=== PATIENT | male | born 1960 | race Caucasian/White ===

== ENCOUNTER 2016-10-17 06:08 | Inpatient (IN) | payer BC ==
--- NOTE | 2016-10-09 08:58 | HP ---
HISTORY AND PHYSICAL: DATE OF ADMISSION: DATE OF PROCEDURE: 10/17/16. PROCEDURE: Left total knee replacement. CHIEF COMPLAINT: Left knee pain. HISTORY OF PRESENT ILLNESS: Mr. Goncalves is a very pleasant 56-year-old gentleman who presents for h istory and physical examination prior to undergoing a left total knee replacement. In brief, the carmen hernandez has severe end-stage osteoarthritis of his left knee and has failed conservative treatment suc h as steroid injections and antiinflammatories. He has elected to undergo a left total knee replace ment by Dr. Lindquist on 10/17/16. PAST MEDICAL HISTORY: 1. Hypertension. 2. GERD. 3. Osteoarthritis. 4. History of shoulder dislocation. PAST SURGICAL HISTORY: 1. Back surgery. 2. Bilateral knee surgery; left in 1985, right in 1973. 3. Neck surgery. 4. Carpal tunnel surgery. CURRENT MEDICATIONS: 1. Tramadol 100 mg. 2. Lisinopril 25 mg daily. 3. Aleve PM p.r.n. 4. Tylenol 325 mg p.r.n. 5. Celebrex 100 mg b.i.d. p.r.n. 6. AcipHex 20 mg one tablet daily. ALLERGIES: NO KNOWN DRUG ALLERGIES. FAMILY MEDICAL HISTORY: No family medical history of DVTs, PEs, or stroke. SOCIAL HISTORY: Positive alcohol use, approximately one drink per day, no history of tobacco use. Currently, living with his . REVIEW OF SYSTEMS: General: Denies fevers, chills, or lightheadedness. No difficulty with anesthe dorys. HEENT: Negative for headache, lightheadedness, or syncopal episodes. Integument: Negative f or abrasions, lesions, open wounds or sores. Does have difficulty of wound healing. Cardiothoracic : Negative for chest pain, palpitations, or edema. Positive for hypertension. Pulmonary: Negativ e for shortness of breath with exertion, chronic cough or COPD. GI: Negative for nausea, vomiting, constipation, or diarrhea. Positive for GERD. : Negative for nocturia, urinary frequency, urge ncy, history of UTIs, or kidney problems. Musculoskeletal: Positive for left knee pain. Positive f or chronic lower back pain. Neurologic: Positive for paresthesia of bilateral lower extremities. P ositive for numbness in bilateral lower extremities. No history of seizure, stroke or epilepsy. En docrine: Negative for diabetes or thyroid. Hematologic: Negative for easy bruising, anemia, or exc essive bleeding. No history of DVT or PEs. Infectious Disease: Negative for MRSA, hep C, or HIV. PHYSICAL EXAMINATION GENERAL: Well appearing, no acute distress. Alert and oriented x3. VITAL SIGNS: Height 70 inches, weight 103 pounds, pulse 60, blood pressure sitting 134/66, respirat ions 16. Pain level is 0. BMI of 29.1. HEENT: Normocephalic, atraumatic. EOMI. NECK: Supple. No palpable lymph nodes. PULMONARY: Clear to auscultation bilaterally. No crackles, rhonchi or wheezes. CARDIAC: Regular rate and rhythm. No murmurs, gallops, or rubs. ABDOMEN: Soft, nontender, nondistended, nonobese, normoactive bowel sounds. Negative CVA tenderness bilaterally. MUSCULOSKELETAL: Posterior tibial pulses 2+ bilaterally. No edema in bilateral lower extremities. Range of motion of left knee 0 to 100. Positive warmth over left knee, mild left knee joint effusi on, tenderness diffusely throughout knee joint. NEUROLOGIC: Alert and oriented x3. Cranial nerves are grossly intact. Sensation is decreased to l ight touch in bilateral lower extremities, worse in left lower extremity . ASSESSMENT: The patient is a very pleasant 56-year-old gentleman who presents today for history an d physical examination prior to undergoing his left total knee replacement. Presumed the pat ient does have a reaction of an upset stomach to narcotic pain medication and has been able to take one time in the past, however, is unaware of what this medication is, so no medications were sent pr eoperatively for the patient. I reviewed the surgical risks and complications and both were signed. He had no further questions or concerns, however, will call if any do arise. CARMEN COWAN [id number]/[facility] #: [id number]
[~2016-10-17 06:08] MED LIST: Buffered Lidocaine 1% SYR 3ML* 3 ML/SYR SYRINGE INTRADERM ONE
[2016-10-17] MEDS ORDERED: ceFAZolin 2 GM PREMIX (*) 2 GM/50 ML BAG IVPB ONE (06:22)
[2016-10-17] MEDS ORDERED: Buffered Lidocaine 1% SYR 3ML* 3 ML/SYR SYRINGE ONE (06:22)
[2016-10-17] MEDS ORDERED: Midazolam* 1 MG/ML 5 ML VIAL (5 MG) ONE (07:17)
[2016-10-17] MEDS ORDERED: Bupivacaine 0.5% W/EPI SDV* 30 ML VIAL ONE (07:21)
[2016-10-17] MEDS ORDERED: Lidocaine 2% MPF* 2 ML VIAL ONE (07:40)
[2016-10-17] MEDS ORDERED: Rocuronium* 10 MG/ML VIAL ONE (07:40)
[2016-10-17] MEDS ORDERED: Propofol* 10 MG/ML 20 ML BTL IV PUSH ONE (07:40)
[2016-10-17] MEDS ORDERED: Ketorolac INJ* 30 MG/ML 1 ML VIAL ONE (07:40)
[2016-10-17] MEDS ORDERED: Dexamethasone IV* 4 MG/ML 1 ML (4 MG) ONE (07:40)
[2016-10-17] MEDS ORDERED: Famotidine IV* 10 MG/ML 2 ML (20 mg) ONE (07:40)
[2016-10-17] MEDS ORDERED: fentaNYL* 50 MCG/ML 2 ML VIAL (100 MCG VIAL) ONE ×4 (07:53→14:00)
[2016-10-17] MEDS ORDERED: Labetalol IV* 5 MG/ML 20 ML VIAL ONE (08:21)
[2016-10-17] MEDS ORDERED: HYDROmorphone INJ* 1 MG/ML CARPUJECT SYRINGE ONE ×2 (08:21→09:48)
[2016-10-17] MEDS ORDERED: EPHEDrine (Pressors)* 50 MG/ML VIAL ONE (08:35)
[2016-10-17] MEDS ORDERED: PROCHLORPERAZINE INJ 5 MG/ML 2 ML VIAL IV PRN (08:43)
[2016-10-17] MEDS ORDERED: oxyCODONE TAB* 5 MG TAB PO PRN (08:43)
[2016-10-17] MEDS ORDERED: HYDROmorphone INJ* 1 MG/ML CARPUJECT SYRINGE IV PRN (08:43)
[2016-10-17] MEDS ORDERED: fentaNYL* 50 MCG/ML 2 ML VIAL (100 MCG VIAL) IV PRN (08:43)
[2016-10-17] MEDS ORDERED: Ondansetron INJ* 2 MG/ML VIAL IV PRN (08:43)
[2016-10-17] MEDS ORDERED: DiMENhydriNATE IV* 50 MG/ML VIAL IV PUSH PRN (08:43)
[2016-10-17] MEDS ORDERED: Acetaminophen TAB* 325 MG PO SCH (09:00)
[2016-10-17] MEDS ORDERED: Bupivacaine 0.25% EPI 200,000* 30 ML SDV ONE (10:48)
[2016-10-17] MEDS ORDERED: Ondansetron INJ* 2 MG/ML VIAL ONE ×2 (10:55→12:55)
[2016-10-17] MEDS ORDERED: diPHENhydraMINE IV* 50 MG/ML 1 ml VIAL (BENADRYL) IV PRN (12:23)
[2016-10-17] MEDS ORDERED: oxyCODONE/Acetamin 5/325 MG* TAB PO PRN (12:23)
[2016-10-17] MEDS ORDERED: Morphine INJ* 4 MG/ML 1 ML CARPUJECT IV PRN (12:23)
[2016-10-17] MEDS ORDERED: Ibuprofen TAB* 200 MG PO PRN (12:32)
[2016-10-17] MEDS ORDERED: Acetaminophen TAB* 325 MG ONE (13:12)
--- NOTE | 2016-10-17 13:21 | RAD ---
INDICATION: Status post total left knee replacement surgery. COMPARISON: Comparison is made with a prior x-ray study of the left knee from July 10, 2016. TECHNIQUE: 2 views of the left knee were obtained. FINDINGS: The patient is status post total left knee replacement surgery. The bones and prostheses are in normal alignment. There are 2 surgical drains present anterior and several surgical glenis present anterior. IMPRESSION: STATUS POST TOTAL LEFT KNEE REPLACEMENT SURGERY.
[2016-10-17] MEDS: Docusate CAP* 100 MG PO SCH ×2 (15:12→20:52)
[2016-10-17] MEDS: Aspirin TAB* 325 MG PO SCH (15:12)
[2016-10-17] MEDS: traMADol TAB* 50 MG PO PRN (15:18)
[2016-10-17] MEDS: ceFAZolin 1 GM in Dextrose (*) 1 GM/50 ML BAG IVPB SCH (17:15)
[2016-10-17] MEDS: Lisinopril TAB* 5 MG PO SCH (17:15)
[2016-10-17] MEDS: oxyCODONE/Acetamin 5/325 MG* TAB PO PRN ×2 (17:44→20:52)
[2016-10-17] MEDS ORDERED: RABEPRAZOLE 20 MG PO SCH (18:00)
[2016-10-17] MEDS: Ondansetron INJ* 2 MG/ML VIAL IV PRN (19:24)
[2016-10-17] MEDS: Ferrous Sulfate TAB* 325 MG PO SCH (20:52)
[2016-10-17] MEDS: Mupirocin 2% OINT* TUBE TOPICAL SCH (20:56)
--- NOTE | 2016-10-17 22:09 | OP ---
DATE OF OPERATION: 10/17/16 - ROOM #346 DATE OF : 56 SURGICAL CARE: Left knee. SURGEON: Maxime Lindquist MD ASSISTANTS: 1. CARMEN Camilo 2. Carin Llanos, surgical specialist. ANESTHESIOLOGIST: Laci Strickland MD ANESTHESIA: Endotracheal tube general. PRE-OP DIAGNOSIS: Severe left knee arthritis with varus malalignment. The patient is status post repair of the medial side of his knee including a staple on the tibia. POST-OP DIAGNOSIS: Severe left knee arthritis with varus malalignment. The patient is status post repair of the medial side of his knee including a staple on the tibia. OPERATIVE PROCEDURE: Left knee removal of deep staple from the tibia and total knee replacement. COMPONENTS UTILIZED: The knee replaced with a Shlomo Persona knee posterior stabilized with a size 10 femur, G tibia, 10 articular surface and a 38 patella. COMPLICATIONS: There were no complications. DRAINS: Two blood collection drains, left knee at the end of the case. BLOOD LOSS: 250 mL. Tourniquet control was utilized just on the cleanup and cementing phase of the case and the condition was stable to the recovery room. OPERATIVE INDICATIONS: Severe arthritis of the left knee that has been no longer responsive to nonoperative care and a left total knee replacement was recommended. DESCRIPTION OF PROCEDURE: The patient was brought to the operating room, placed on the operating table in a supine position. Following the induction of the anesthetic, a Dominguez catheter was inserted. The left proximal thigh was wrapped with a tourniquet and the left leg was prepped from the tourniquet to the tips to the toes and then draped and sealed off in the usual fashion for surgical care of the knee and a preliminary chlorhexidine prep was also done. The posterior tibial pulse was noted to be 2+ at the start of case and the patient had a flexion contracture of this knee of approximately 3 to 5 degrees. The universal protocol time-out was completed, we confirmed Quinten Goncalves, and we proceeded with the case. Skin incision went from the superior pole of the patella just 2 fingerbreadths superior to that and joined his previous medial parapatellar incision over the medial retinaculum and then distally on the old incision. The tourniquet was utilized later in the case. Hemostasis was checked and achieved throughout the case utilizing electro-cautery. The rectus femoris was exposed. The rectus femoris was divided at its junction with a vastus medialis tendon staying as close to vastus medialis as possible and then medial parapatellar opening into the knee. The knee had clear goldish synovial fluid that was abundant. The knee had complete eburnation of bone, medial femoral condyle, medial tibial plateau, large osteophytes, medial femoral condyle, medial tibial plateau, and on the intercondylar notch was almost obscured by osteophyte. The lateral compartment had some opening. The medial meniscus was largely grown on its inner portion and more was left peripherally posteriorly. Throughout the case, the MCL was carefully preserved. The tissues on the tibia were elevated subperiosteally from the incision that went down to the bone just medial to the tibial tubercle and then staying subperiosteally, we went to the posterior medial corner of the knee. The previously inserted staple was removed with a [employer] staple general matcher and this area at the end of case was bone grafted about a centimeter of bone loss. The patella was made so that could be everted. We proceeded with removal of the infrapatellar fat pad, medial synovectomy around the patella. The remains of the anterior medial meniscus were minimal. They were excised. The distal anterior femur was exposed subperiosteally for referencing and measuring the ACL and PCL were uplifted from their femoral origins and the tibia was made so it could be subluxated for from under the femur. The proximal tibial cut was made, first our goal here was to have a tibial surface that have a slight posterior slope and be perpendicular to the long axis of the tibia removing just a millimeter or two medially and 10 to 14 cm laterally. The femoral intramedullary drill was then utilized and the femur was then entered. The femoral canal was suctioned to discourage embolization. The distal femoral cutting guide was applied on #2 and 6 degrees of valgus and the distal cut was completed on the femur. The femur was then measured for a 10 and the 10 block was applied and the anterior, posterior, and chamfering cuts were completed. We then finished removal of the posterior horn medial meniscus carefully preserving the MCL, removed some of the medial tibia to allow some medial release, I removed some of the gastroc insertion medially and little laterally. The MCL was also uplifted some sending a large elevator down the medial aspect of the tibia. At this stage, we were tight in extension and flexion, so the tibia was recut by 2 mm. The femur was then completed for the size 10. The tibia was completed for the size G. The knee was articulated and extended with a G tibia, 10 articular surface, and 10 femur with full knee extensions, stable ligaments in extension and 90 degrees of flexion. The patella was cut flat. A 38 was chosen, 3 drill holes were made, and these were under cut and a lateral release was not necessary. The knee was then cleaned with 3 L of pulsed saline irrigation. The femoral canal was cleaned x6 with saline, suctioned empty, and bone plug inserted. The leg was then exsanguinated. The tourniquet elevated to 275. The knee was then cleaned again in extension and cleaned in flexion with retractors in place and all bony surfaces were then dried carefully. The cement was mixed and the components were cemented into position, the patella, followed by the tibia, followed by the femur, each component was impacted. Excess cement was removed and the knee was articulated and extended during the final hardening phase. All excess cement was removed and the knee was checked posteriorly for retained cement, fragments, or bleeding points. We then infiltrated the pericapsular tissues posteromedial with Marcaine 0.5% with epinephrine and we went medially as well and some laterally and then as we closed, we instilled in the knee 0.25% Marcaine with epinephrine 30 cc of the first as well. The 2 blood collection drains were brought on to superolateral suprapatellar pouch. Careful hemostasis was achieved during the closure and the knee was irrigated several times during closure with saline. Quad mechanism reapproximated with interrupted #1 Polysorb sutures in figure-of- eight fashion, the same was about medial retinaculum distally. We used 0 Polysorb and then the superficial subcu closed with interrupted 3-0, the skin closed with glenis, and the skin was washed and dried and covered with Betadine-soaked release followed by sterile gauze, sterile Webril, cryotherapy cuff, ABD pads, and 6-inch Álvaro bandages loosely applied. The knee was extended and flexed multiple times during the closure and it was flexed past 130 degrees for this at this time. The posterior tibial pulse was 2+ at the end of the case. The patient was returned to the hospital bed, to the recovery room in stable and satisfactory condition having tolerated the procedure very well. CC: Rene Walker MD * [id number]/[facility] #: [id number] MTDsOmani
[2016-10-18] MEDS: ceFAZolin 1 GM in Dextrose (*) 1 GM/50 ML BAG IVPB SCH ×2 (00:59→08:35)
[2016-10-18] MEDS: oxyCODONE/Acetamin 5/325 MG* TAB PO PRN ×2 (01:00→05:51)
[2016-10-18] MEDS: Ondansetron INJ* 2 MG/ML VIAL IV PRN ×2 (03:58→09:38)
[2016-10-18 07:08] LABS: Hematocrit 30 % (42-52); Hemoglobin 9.8 g/dl (14.0-18.0)
[2016-10-18 07:15] LABS: BUN/Creatinine Ratio 17.7 (8-20); Calcium 8.1 mg/dL (8.6-10.3); EGFR African American 103.5 (>60); EGFR Non-African American 80.5 (>60)
[2016-10-18] MEDS ORDERED: Omeprazole CAP* 20 MG PO ONE (09:00)
[2016-10-18] MEDS: Aspirin TAB* 325 MG PO SCH (09:33)
[2016-10-18] MEDS: traMADol TAB* 50 MG PO PRN ×2 (09:39→19:47)
[2016-10-18] MEDS: Ferrous Sulfate TAB* 325 MG PO SCH ×2 (10:35→21:29)
[2016-10-18] MEDS: Docusate CAP* 100 MG PO SCH ×3 (10:35→21:29)
[2016-10-18] MEDS: Vitamin THERAPEUTIC TAB PO SCH (10:35)
[2016-10-18] MEDS ORDERED: traMADol TAB* 50 MG PO PRN (11:04)
[2016-10-18] MEDS: Calcium Carbonate CHEW TAB* 500 MG (TUMS) PO PRN ×2 (12:29→19:55)
[2016-10-18] MEDS: Acetaminophen TAB* 325 MG PO PRN (12:29)
[2016-10-18] MEDS: oxyCODONE TAB* 5 MG TAB PO PRN ×3 (13:07→21:29)
[2016-10-18 16:25] LABS: Hematocrit 29 % (42-52); Hemoglobin 9.8 g/dl (14.0-18.0)
[2016-10-18] MEDS: Lisinopril TAB* 5 MG PO SCH (17:17)
[2016-10-18] MEDS: chlorproMAZINE TAB* 25 MG PO PRN (19:55)
[2016-10-18] MEDS: Mupirocin 2% OINT* TUBE TOPICAL SCH (21:30)
[2016-10-18] MEDS: traZODone TAB* 50 MG TAB PO PRN (22:55)
[2016-10-19] MEDS: oxyCODONE TAB* 5 MG TAB PO PRN ×3 (01:53→12:50)
[2016-10-19 06:36] LABS: Hematocrit 29 % (42-52); Hemoglobin 9.6 g/dl (14.0-18.0)
[2016-10-19] MEDS: Acetaminophen TAB* 325 MG PO PRN ×2 (08:56→19:14)
[2016-10-19] MEDS: Aspirin TAB* 325 MG PO SCH (08:56)
[2016-10-19] MEDS: Vitamin THERAPEUTIC TAB PO SCH (08:56)
[2016-10-19] MEDS: Docusate CAP* 100 MG PO SCH ×3 (08:56→20:57)
[2016-10-19] MEDS: Ferrous Sulfate TAB* 325 MG PO SCH ×2 (08:56→20:57)
[2016-10-19] MEDS: traMADol TAB* 50 MG PO PRN ×2 (08:56→19:13)
[2016-10-19] MEDS ORDERED: Magnesium Hydroxide LIQ* 30 ML UDC PO ONE (09:00)
[2016-10-19] MEDS ORDERED: Sodium Phosphate ADULT ENEMA* 118 ml bottle PR PRN (09:19)
[2016-10-19] MEDS ORDERED: Bisacodyl SUPP* 10 MG SUPP PR PRN (09:20)
[2016-10-19] MEDS ORDERED: ALPRAZolam TAB* 0.25 MG PO PRN (09:20)
[2016-10-19] MEDS: Calcium Carbonate CHEW TAB* 500 MG (TUMS) PO PRN (09:37)
[2016-10-19] MEDS ORDERED: Magnesium Hydroxide LIQ* 30 ML UDC PO PRN (12:23)
[2016-10-19] MEDS: Lisinopril TAB* 5 MG PO SCH (16:36)
[2016-10-19] MEDS ORDERED: RABEPRAZOLE 20 MG PO SCH (18:00)
[2016-10-19] MEDS: chlorproMAZINE TAB* 25 MG PO PRN (20:57)
[2016-10-19] MEDS: Mupirocin 2% OINT* TUBE TOPICAL SCH (20:59)
[2016-10-19] MEDS: traZODone TAB* 50 MG TAB PO PRN (23:36)
[2016-10-20] MEDS: traMADol TAB* 50 MG PO PRN ×2 (05:32→11:58)
[2016-10-20 07:15] LABS: Hematocrit 28 % (42-52); Hemoglobin 9.4 g/dl (14.0-18.0)
[2016-10-20 08:25] VITALS: BP 141/75
[2016-10-20] MEDS: Vitamin THERAPEUTIC TAB PO SCH (09:01)
[2016-10-20] MEDS: Aspirin TAB* 325 MG PO SCH (09:01)
[2016-10-20] MEDS: Ferrous Sulfate TAB* 325 MG PO SCH (09:01)
[2016-10-20] MEDS: Acetaminophen TAB* 325 MG PO PRN (09:01)
[2016-10-20] MEDS: Docusate CAP* 100 MG PO SCH (09:01)
--- NOTE | 2016-10-20 10:43 | PN ---
Progress Note - Progress Note SOAP: Subjective: [56 y/o male s/p L TKA 10/17/2016. Patient complains of increased bleeding from incision overnight, working well with PT denies SOb. Pain controlled with Ultram and oxycodone. Frustrated with pain/ recovery time. ] Objective: [General- Well appearing, NAD sitting in chair comfortably MSK- incision c/d/i, no drainge noted however old dried blood noted on gauze pad. negative homans sign, + ankle dorsiflexion/ plantarflexion b/l LE's, sensation intact b/l LE's ] Vital Signs Temp 97.9 F 10/20/16 07:52 Pulse 105 10/20/16 07:52 Resp 18 10/20/16 07:52 BP 141/75 10/20/16 07:52 Pulse Ox 100 10/20/16 07:52 Intake & Output 10/19/16 10/20/16 10/20/16 18:59 06:59 18:59 Intake Total 600 450 320 Output Total 1275 850 Balance -675 -400 320 Intake: Oral 600 450 320 Output: Urine 1275 850 Other: # Bowel Movements 1 Estimated Stool Amount Large E Laboratory Results - last 24 hr 10/20/16 06:48 Hgb 9.4 L Hct 28 L Active Medications Generic Name Dose Route Start Last Admin Trade Name Freq PRN Reason Stop Dose Admin Acetaminophen 650 mg 10/17/16 12:23 10/20/16 09:01 Tylenol Tab* PO 650 mg Q4H PRN Administration PAIN OR TEMPERATURE Alprazolam 0.25 mg 10/19/16 09:20 Xanax Tab* PO Q6H PRN ANXIETY Aspirin 325 mg 10/17/16 13:00 10/20/16 09:01 Aspirin Tab* PO 325 mg DAILY FRANKLYN Administration Bisacodyl 10 mg 10/19/16 09:20 10/19/16 16:40 Dulcolax Supp* NH 10 mg DAILY PRN Administration NOT SPECIFIED Calcium Carbonate 500 mg 10/18/16 12:12 10/19/16 09:37 Tums* PO 500 mg Q4H PRN Administration HEARTBURN Chlorpromazine HCl 25 mg 10/18/16 12:11 10/19/16 20:57 Thorazine Tab* PO 25 mg Q6H PRN Administration HICCUPS Diphenhydramine HCl 25 mg 10/17/16 12:23 Benadryl Iv* IV Q6H PRN itching Docusate Sodium 100 mg 10/17/16 14:00 10/20/16 09:01 Colace Cap* PO 100 mg TID FRANKLYN Administration Ferrous Sulfate 325 mg 10/17/16 21:00 10/20/16 09:01 Ferrous Sulfate Tab* PO 325 mg BID FRANKLYN Administration Lactated Ringer's 1,000 mls @ 100 mls/hr 10/17/16 13:00 10/18/16 03:58 Lactated Ringers 1000 Ml Bag* IV 100 mls/hr PER RATE FRANKLYN Administration Lisinopril 2.5 mg 10/17/16 18:00 10/19/16 16:36 Prinivil Tab* PO 2.5 mg QPM FRANKLYN Administration Magnesium Hydroxide 30 ml 10/19/16 12:23 10/19/16 14:59 Milk Of Magnesia Liq* PO 30 ml Q6H PRN Administration constipation Morphine Sulfate 3 mg 10/17/16 12:23 10/19/16 04:00 Morphine Inj (Syringe)* IV 3 mg Q30M PRN Administration PAIN - SEVERE Multivitamins 1 tab 10/18/16 09:00 10/20/16 09:01 Theragran Tab* PO 1 tab DAILY FRANKLYN Administration Mupirocin 1 applic 10/17/16 21:00 10/19/16 20:59 Bactroban 2 % Oint* TOPICAL 1 applic BEDTIME FRANKLYN Administration Protocol Ondansetron HCl 4 mg 10/17/16 12:23 10/18/16 09:38 Zofran Inj* IV 4 mg Q6H PRN Administration nausea Oxycodone HCl 10 mg 10/17/16 12:23 10/19/16 12:50 Roxycodone Tab* PO 5 mg Q4H PRN Administration PAIN - MODERATE TO SEVERE Oxycodone/Acetaminophen 1 tab 10/17/16 12:23 Percocet 5/325 Tab* PO Q3H PRN PAIN - MODERATE Oxycodone/Acetaminophen 2 tab 10/17/16 12:23 10/18/16 05:51 Percocet 5/325 Tab* PO 2 tab Q3H PRN Administration PAIN - MODERATE Rabeprazole Sodium 20 mg 10/19/16 18:00 10/19/16 16:36 Aciphex (Nf) PO 20 mg 1800 FRANKLYN Administration Protocol Sodium Biphosphate/Sodium Phosphate 1 bottle 10/19/16 09:19 10/19/16 18:28 Fleet Enema* NH 1 bottle DAILY PRN Administration NO BM Tramadol HCl 100 mg 10/18/16 11:00 10/20/16 05:32 Ultram* PO 100 mg Q6H PRN Administration PAIN - MODERATE Tramadol HCl 50 mg 10/18/16 11:04 Ultram* PO DAILY PRN PAIN Trazodone HCl 25 mg 10/17/16 12:23 10/19/16 23:36 Desyrel Tab* PO 25 mg BEDTIME PRN Administration insomnia Assessment: [56 y/o M s/p L TKA 10/17/2016 ] Plan: [- D/C today - Follow up with Dr Lindquist within 4-6 weeks - VNS and home PT - ASA 325 mg for DVT prophylaxis ]
--- NOTE | 2016-10-22 01:34 | DS ---
DISCHARGE SUMMARY: DATE OF ADMISSION: 10/17/16 DATE OF DISCHARGE: 10/20/16 CHIEF COMPLAINT: 1. Left knee end-stage osteoarthritis. 2. Hypertension. 3. Gastroesophageal reflux disease. 4. Generalized osteoarthritis. 5. History of shoulder dislocation. DISCHARGE DIAGNOSES: 1. Status post left total knee arthroscopy. 2. Hypertension. 3. Gastroesophageal reflux disease. 4. Generalized osteoarthritis. 5. History of shoulder dislocation. PROCEDURE: Left total knee replacement. CONSULTATIONS: 1. Physical therapy. 2. Occupational therapy. BRIEF HISTORY: Mr. Goncalves is a very pleasant 56-year-old gentleman with severe end- stage osteoarthritis of his left knee who failed conservative treatment and elected to undergo a left total knee arthroplasty on 10/17/[address] Maxime Lindquist. HOSPITAL COURSE: Mr. Goncalves was admitted to the [facility] on , where he underwent a left total knee replacement. Postoperatively, he recovered on the short-stay surgical unit. His Dominguez was removed on postoperative day 2 and the patient was voiding without difficulty. He had a bowel motion, was tolerating a regular diet and his pain was controlled with p.o. Ultram and oxycodone and he was restarted on his home medications. His labs and vital signs remained stable. He was able to weight bear as tolerated on the left lower extremity. He advanced appropriately with physical therapy and occupational therapy. His DVT prophylaxis was managed with aspirin. By post-operative day 3, he was orthopedically and medically stable for discharge to go home with home services. PHYSICAL EXAMINATION: General: The patient is alert and oriented x3, sitting in the chair comfortably, in no acute distress. Vital signs: Temperature 97.9 , pulse rate 95 to 106, respiratory rate 18, oxygenation 100% on room air, blood pressure 141/75. Examination of his left lower extremity demonstrates a surgical incision on the anterior portion of the knee. The incision is benign without erythema or visual signs of infection. There is dried bloody drainage noted on the gauze; however, none is able to expressed from the wound itself. A dry gauze dressing was placed with an Álvaro wrap coverage and the patient had active ankle dorsiflexion and plantar flexion bilaterally with 2+ posterior tibial pulses and sensation to light touch in bilateral lower extremities. DIAGNOSTIC STUDIES/LAB DATA: On the date of discharge, H and H of 9.4 and 29. RADIOGRAPHS: Postoperative film taken 10/17/16 shows a left total knee replacement in good position. DISCHARGE MEDICATIONS: 1. Aspirin 325 mg 1 tablet daily. 2. Tylenol extra strength 1 tablet p.o. q.4 to 6 hours. 3. Colace 100 mg p.o. t.i.d. 4. Ibuprofen 200 mg p.o. q.6 hours p.r.n. for pain. 5. Lisinopril 2.5 mg p.o. q.p.m. daily. 6. Naproxen sodium 440 mg p.o. daily p.r.n. pain. 7. AcipHex 20 mg q.p.m. daily. 8. Tramadol 50 to 100 mg p.o. q.6 hours p.r.n. 9. Oxycodone 5 mg p.o. q.4 hours p.r.n. pain. CONDITION ON DISCHARGE: Stable. DISCHARGE INSTRUCTIONS: Mr. Goncalves is a very pleasant 56-year-old gentleman postoperative day 3, status post left total knee replacement, which was uncomplicated. He is orthopedically and medically stable for discharge to go home with home services. His labs and vital signs are stable. He will restart his home medications. He will take aspirin 325 mg daily for DVT prophylaxis. He will remain weightbearing as tolerated on the left lower extremity. He will have home physical therapy twice a week and visited by home nursing who will remove his glenis. He will continue to take Ultram and oxycodone as needed for pain and with Colace up to 3 times a day to prevent constipation. He will follow up with Dr. Lindquist in approximately 4 to 6 weeks for postoperative evaluation. He is instructed to go immediately to the emergency room should he develop chest pain or shortness of breath. Should he develop fever, increasing pain, redness or increased drainage around the incision site, he is to call the office immediately. CARMEN COWAN [id number]/[facility] #: [id number] MTDD
== END 2016-10-20 12:30 | disposition home health service (06) | DRG 302 ==
LOC: AA 06:08 → SSU 14:38
PROVIDERS: ADMIT Orthopaedic Surgery; ATTEND Orthopaedic Surgery
PROC: 0QPH04Z Removal of Internal Fixation Device from Left Tibia, Open Approach (ICD-10-PCS; 2016-10-17)
PROC: 0SRD0J9 Replacement of Left Knee Joint with Synthetic Substitute, Cemented, Open Approach (ICD-10-PCS; principal; 2016-10-17 07:30)
DX: M17.12 Unilateral primary osteoarthritis, left knee (principal); D62 Acute posthemorrhagic anemia; I10 Essential (primary) hypertension; K21.9 Gastro-esophageal reflux disease without esophagitis; Z79.82 Long term (current) use of aspirin; M21.162 Varus deformity, not elsewhere classified, left knee; Z83.3 Family history of diabetes mellitus; Z82.49 Family history of ischemic heart disease and other diseases of the circulatory system; Z82.61 Family history of arthritis
CPT/HCPCS: 36415; 80048; 85014; 85018; 86703; 86803; 88305; 88311; 94760; A9270-GY; C1776; J0690; J1100; J1170; J1885; J2250; J2270; J2405; J2704; J3010

== ENCOUNTER 2017-07-06 06:38 | Day surgery (SDC) | payer BC ==
--- NOTE | 2017-07-02 20:49 | HP ---
PREOPERATIVE HISTORY AND PHYSICAL: DATE OF SURGERY/ADMISSION: 07/06/17 ATTENDING SURGEON: Bing Pereira MD * (DICTATED BY CARMEN CARRERA) PROCEDURE: Left wrist carpal tunnel release. CHIEF COMPLAINT: Numbness and tingling left hand. HISTORY OF PRESENT ILLNESS: This is a 57-year-old male who has had ongoing symptoms of numbness and tingling and pain in the left hand for over 10 years now. He has failed conservative treatment including bracing and a cortisone injection. He recently underwent a carpal tunnel release for the right wrist and has done quite well with that. He would like to proceed with a left wrist carpal tunnel release at this time. PAST MEDICAL HISTORY: 1. Hypertension. 2. GERD. 3. Osteoarthritis. 4. History of shoulder dislocation. PAST SURGICAL HISTORY: 1. Right carpal tunnel release. 2. Back surgery. 3. Bilateral knee surgeries, left in 1985 and right in 1973. 4. Neck surgery. CURRENT MEDICATIONS: 1. Aciphex 20 mg daily. 2. Aleve PM 2 tabs at night. 3. Lisinopril 25 mg daily. 4. Tylenol 325 mg as needed. ALLERGIES: No known drug allergies. FAMILY MEDICAL HISTORY: Noncontributory. SOCIAL HISTORY: The patient is employed at [employer]. He denies tobacco and recreational drug use. He does admit to drinking alcohol on somewhat regular occasions. REVIEW OF SYSTEMS: Negative for fevers, chills or night sweats. He has had a problem with hiccups after general anesthesia in the past. HEENT: Negative for headache, lightheadedness or syncopal episodes. Integumentary: Negative for abrasions, lesions, or open wounds. Cardiothoracic: Negative for hypertension, chest pain, palpitations or edema. Pulmonary: Negative for shortness of breath with exertion, chronic cough, COPD. GI: Negative for nausea, vomiting, diarrhea, constipation, or GERD. : Negative for nocturia, urinary frequency, urgency, history of UTIs or kidney problems. Musculoskeletal : Positive for current complaint. Negative for chronic or intermittent back pain or history of fractures. Neurological: Negative for history of seizure, stroke or epilepsy. Endocrine: Negative for diabetes or thyroid issues. Hematologic: Negative for easy bruising, anemia, excessive bleeding or history of DVT. Infectious Disease: Negative for history of MRSA, hepatitis C or HIV. PHYSICAL EXAMINATION GENERAL: Well-developed, well-nourished 57-year-old male in no acute distress. VITAL SIGNS: Height 6 feet 10 inches, weight 202 pounds, pulse rate 64, blood pressure 138/85. HEENT: Normocephalic, atraumatic. Pupils are equal, round and reactive to light and accommodation. Extraocular movements are intact. NECK: Supple. No palpable lymph nodes. Throat is clear. PULMONARY: Lungs are clear to auscultation bilaterally. No wheezes, rales or rhonchi. CARDIOVASCULAR: Regular rate and rhythm. S1, S2. No murmurs, rubs or gallops. No edema. ABDOMEN: Positive bowel sounds. Soft, nontender. NEUROLOGIC: Alert and oriented x3. Cranial II through XII are intact. Sensation is intact to light touch. MUSCULOSKELETAL: On inspection of his left wrist and hand, he has mild thenar wasting and weakness with thumb abduction. He has a positive Tinel's at the median nerve. Sensation is intact to light touch. IMPRESSION: Left carpal tunnel syndrome. PLAN: The patient is scheduled to undergo a left wrist carpal tunnel release with Dr. Pereira on 07/06/17. He will return to the office 10 to 14 days postop for followup and suture removal. A prescription for [place] was e-scribed to the patient's pharmacy for postoperative pain management. CARMEN CARRERA [id number]/[facility] #: [id number] GEOVANNA
[~2017-07-06 06:38] MED LIST changes: +Buffered Lidocaine 0.9% SYRIN* 5 ML/SYR SYRINGE INTRADERM ONE; -Buffered Lidocaine 1% SYR 3ML* 3 ML/SYR SYRINGE INTRADERM ONE
[2017-07-06] MEDS ORDERED: Lidocaine 1% INJ* 10 MG/ML 30 ML SDV ONE (07:12)
[2017-07-06] MEDS ORDERED: fentaNYL* 50 MCG/ML 2 ML VIAL (100 MCG VIAL) ONE (07:35)
[2017-07-06] MEDS ORDERED: Midazolam* 1 MG/ML 2 ML VIAL (2 MG) ONE (07:35)
[2017-07-06] MEDS ORDERED: Propofol* 10 MG/ML 20 ML BTL IV PUSH ONE (07:54)
[2017-07-06 08:18] VITALS: BP 120/71
--- NOTE | 2017-07-06 21:57 | OP ---
DATE OF OPERATION: 07/06/17 [facility] DATE OF : 56 SURGEON: Bing Pereira MD. PATHOLOGY ASSISTANT: CARMEN Silvestre. ANESTHESIOLOGIST: Juan Devine DO ANESTHESIA: Local MAC. PRE-OP DIAGNOSIS: Left carpal tunnel syndrome. POST-OP DIAGNOSIS: Left carpal tunnel syndrome. OPERATIVE PROCEDURE: Left carpal tunnel release. ESTIMATED BLOOD LOSS: Zero. TOURNIQUET TIME: About 5 minutes. INDICATIONS FOR PROCEDURE: Quinten is a 57-year-old male with numbness and tingling in the median nerve distribution of his left hand. He presents for left carpal tunnel release. DESCRIPTION OF PROCEDURE: The patient was brought to the operating room, was given a sedation anesthetic and a local infiltration of 10 cc of 1% plain lidocaine in the palm of his right hand. The skin of his left hand and forearm was prepped and draped in the usual sterile fashion. The hand and forearm were exsanguinated and the tourniquet elevated to 250 mmHg. A longitudinal incision was made in the palm in line with the ring finger. We dissected through the subcutaneous tissue down to the transverse carpal ligament. The ligament was divided sharply with a knife and then more proximally with the scissors. The nerve was dissected free from the surrounding tissue and there was an area of moderate compression in the mid portion of the ligament. The wound was irrigated and the skin edges reapproximated with 4- 0 nylon suture. The wound was dressed with Xeroform, 4x4, Webril, and an Álvaro wrap. The patient tolerated the procedure well and was brought to the recovery room in good condition. [id number]/[facility] #: [id number] MTDD
== END 2017-07-06 08:36 | disposition home or self-care (01) ==
LOC: OREAST 06:38
PROVIDERS: ATTEND Orthopaedic Surgery
DX: G56.02 Carpal tunnel syndrome, left upper limb (principal); I10 Essential (primary) hypertension; K21.9 Gastro-esophageal reflux disease without esophagitis; M19.90 Unspecified osteoarthritis, unspecified site
CPT/HCPCS: J2001; J2250; J2704; J3010

== ENCOUNTER 2022-03-28 06:38 | Inpatient (IN) ==
[2022-03-28] MEDS ORDERED: Magnesium Hydroxide LIQ 30 ML UDC PO PRN (12:13)
[2022-03-28] MEDS: Enoxaparin 40 MG/0.4 ML SYR SUBCUT SCH (19:57)
[2022-03-28] MEDS: Mupirocin 2% OINT TUBE TOPICAL SCH (19:59)
[2022-03-28] MEDS: Senna TAB 8.6 mg TAB PO SCH (20:00)
[2022-03-28] MEDS: oxyCODONE SR 10 mg TAB PO SCH (20:01)
[2022-03-29 06:10] LABS: ABS Eosinophils 0.2 10^3/ul (0-0.6); ABS Lymphocytes 1.3 10^3/ul (1.0-4.8); ABS Monocytes 0.8 10^3/ul (0-0.8); ABS Neutrophils 5.2 10^3/ul (1.5-7.7); Eosinophil % 2.5 %; Hematocrit 32 % (42-52); Hemoglobin 11.1 g/dL (14.0-18.0); Lymphocyte % 17.8 %; Mean Corpuscular HGB Conc 34 g/dL (31-36); Mean Corpuscular Hemoglobin 31 pg (27-31); Mean Corpuscular Volume 91 fL (80-94); Mean Platelet Volume 6.6 fL (7.4-10.4); Platelet Count 486 10^3/uL (150-450); Red Blood Count 3.53 10^6 /uL (4.18-5.48); Red Cell Distribution Width 15 % (10-15); White Blood Count 7.5 10^3/uL (3.5-10.8)
[2022-03-29 07:00] LABS: Albumin 3.8 g/dL (3.2-5.2); Albumin/Globulin Ratio 1.3 (1-3); Calcium 9.1 mg/dL (8.6-10.3); Potassium 4.4 mmol/L (3.5-5.0); Total Bilirubin 1.6 mg/dL (0.2-1.0); Total Protein 6.8 g/dL (6.4-8.9); eGFR CKD-EPI 93.5 (>60)
[2022-03-29] MEDS: oxyCODONE SR 10 mg TAB PO SCH ×2 (07:38→21:09)
[2022-03-29] MEDS: Enoxaparin 40 MG/0.4 ML SYR SUBCUT SCH ×2 (07:39→21:09)
[2022-03-29] MEDS: Senna TAB 8.6 mg TAB PO SCH (21:07)
[2022-03-29] MEDS: Mupirocin 2% OINT TUBE TOPICAL SCH (22:05)
[2022-03-30] MEDS: oxyCODONE SR 10 mg TAB PO SCH ×2 (08:35→20:56)
[2022-03-30] MEDS: Enoxaparin 40 MG/0.4 ML SYR SUBCUT SCH ×2 (08:37→20:54)
[2022-03-30] MEDS: Senna TAB 8.6 mg TAB PO SCH (20:55)
[2022-03-30] MEDS: Mupirocin 2% OINT TUBE TOPICAL SCH (20:57)
[2022-03-31] MEDS: oxyCODONE SR 10 mg TAB PO SCH ×2 (08:18→20:20)
[2022-03-31] MEDS: Enoxaparin 40 MG/0.4 ML SYR SUBCUT SCH ×2 (08:19→20:13)
[2022-03-31] MEDS ORDERED: Lidocaine PATCH 5% PATCH TRANSDERM SCH (20:00)
[2022-03-31] MEDS: Mupirocin 2% OINT TUBE TOPICAL SCH (20:13)
[2022-03-31] MEDS: Senna TAB 8.6 mg TAB PO SCH (20:21)
[2022-04-01] MEDS: oxyCODONE SR 10 mg TAB PO SCH ×2 (09:34→20:18)
[2022-04-01] MEDS: Enoxaparin 40 MG/0.4 ML SYR SUBCUT SCH ×2 (09:38→20:23)
[2022-04-01] MEDS ORDERED: Lidocaine PATCH 5% PATCH TRANSDERM SCH (20:00)
[2022-04-01] MEDS: Senna TAB 8.6 mg TAB PO SCH (20:21)
[2022-04-01] MEDS: Mupirocin 2% OINT TUBE TOPICAL SCH (20:24)
[2022-04-02] MEDS: Enoxaparin 40 MG/0.4 ML SYR SUBCUT SCH ×2 (09:00→22:08)
[2022-04-02] MEDS: oxyCODONE SR 10 mg TAB PO SCH ×2 (09:02→22:06)
[2022-04-02] MEDS: Lidocaine PATCH 5% PATCH TRANSDERM SCH (21:10)
[2022-04-02] MEDS: Senna TAB 8.6 mg TAB PO SCH (22:06)
[2022-04-02] MEDS: Mupirocin 2% OINT TUBE TOPICAL SCH (22:34)
[2022-04-03] MEDS: oxyCODONE SR 10 mg TAB PO SCH ×2 (08:41→22:05)
[2022-04-03] MEDS: Enoxaparin 40 MG/0.4 ML SYR SUBCUT SCH ×2 (08:42→22:06)
[2022-04-03] MEDS: Mupirocin 2% OINT TUBE TOPICAL SCH (22:02)
[2022-04-03] MEDS: Senna TAB 8.6 mg TAB PO SCH (22:04)
[2022-04-03] MEDS: Lidocaine PATCH 5% PATCH TRANSDERM SCH (22:06)
[2022-04-04] MEDS: Enoxaparin 40 MG/0.4 ML SYR SUBCUT SCH ×2 (08:57→21:28)
[2022-04-04] MEDS: oxyCODONE SR 10 mg TAB PO SCH ×2 (08:58→21:27)
[2022-04-04] MEDS: Lidocaine PATCH 5% PATCH TRANSDERM SCH (21:28)
[2022-04-04] MEDS: Senna TAB 8.6 mg TAB PO SCH (21:28)
[2022-04-04] MEDS: Mupirocin 2% OINT TUBE TOPICAL SCH (21:34)
[2022-04-05 06:31] LABS: Hematocrit 34 % (42-52); Hemoglobin 11.2 g/dL (14.0-18.0); Mean Corpuscular HGB Conc 33 g/dL (31-36); Mean Corpuscular Hemoglobin 31 pg (27-31); Mean Corpuscular Volume 93 fL (80-94); Mean Platelet Volume 6.7 fL (7.4-10.4); Platelet Count 662 10^3/uL (150-450); Red Blood Count 3.62 10^6 /uL (4.18-5.48); Red Cell Distribution Width 15 % (10-15); White Blood Count 6.3 10^3/uL (3.5-10.8)
[2022-04-05 06:43] LABS: Albumin 3.7 g/dL (3.2-5.2); Calcium 9.1 mg/dL (8.6-10.3); Potassium 4.7 mmol/L (3.5-5.0); Total Bilirubin 0.9 mg/dL (0.2-1.0)
[2022-04-05 06:48] LABS: ABS Eosinophils 0.1 10^3/ul (0-0.6); ABS Lymphocytes 1.7 10^3/ul (1.0-4.8); ABS Monocytes 0.5 10^3/ul (0-0.8); ABS Neutrophils 3.9 10^3/ul (1.5-7.7); Eosinophil % 1.8 %; Lymphocyte % 27.5 %
[2022-04-05 06:49] LABS: Albumin/Globulin Ratio 1.4 (1-3); Globulin 2.7 g/dL (2-4); Total Protein 6.4 g/dL (6.4-8.9); eGFR CKD-EPI 92.3 (>60)
[2022-04-05] MEDS: Enoxaparin 40 MG/0.4 ML SYR SUBCUT SCH ×2 (08:26→22:31)
[2022-04-05] MEDS: oxyCODONE SR 10 mg TAB PO SCH ×2 (08:27→22:12)
[2022-04-05] MEDS: Mupirocin 2% OINT TUBE TOPICAL SCH (22:07)
[2022-04-05] MEDS: Senna TAB 8.6 mg TAB PO SCH (22:11)
[2022-04-05] MEDS: Lidocaine PATCH 5% PATCH TRANSDERM SCH (22:14)
[2022-04-06] MEDS: Enoxaparin 40 MG/0.4 ML SYR SUBCUT SCH ×2 (08:14→21:21)
[2022-04-06] MEDS: oxyCODONE SR 10 mg TAB PO SCH ×2 (08:14→21:26)
[2022-04-06] MEDS: Mupirocin 2% OINT TUBE TOPICAL SCH (21:20)
[2022-04-06] MEDS: Lidocaine PATCH 5% PATCH TRANSDERM SCH (21:22)
[2022-04-06] MEDS: Senna TAB 8.6 mg TAB PO SCH (21:27)
[2022-04-07] MEDS: oxyCODONE SR 10 mg TAB PO SCH ×2 (08:54→21:08)
[2022-04-07] MEDS: Enoxaparin 40 MG/0.4 ML SYR SUBCUT SCH ×2 (08:54→21:06)
[2022-04-07] MEDS: Lidocaine PATCH 5% PATCH TRANSDERM SCH (21:09)
[2022-04-07] MEDS: Senna TAB 8.6 mg TAB PO SCH (21:09)
[2022-04-07] MEDS: Mupirocin 2% OINT TUBE TOPICAL SCH (21:44)
[2022-04-08] MEDS: Enoxaparin 40 MG/0.4 ML SYR SUBCUT SCH ×2 (08:19→20:52)
[2022-04-08] MEDS: oxyCODONE SR 10 mg TAB PO SCH ×2 (08:20→20:49)
[2022-04-08] MEDS: Mupirocin 2% OINT TUBE TOPICAL SCH (20:49)
[2022-04-08] MEDS: Lidocaine PATCH 5% PATCH TRANSDERM SCH (20:50)
[2022-04-08] MEDS: Senna TAB 8.6 mg TAB PO SCH (20:53)
[2022-04-09] MEDS: oxyCODONE SR 10 mg TAB PO SCH ×2 (08:50→21:02)
[2022-04-09] MEDS: Enoxaparin 40 MG/0.4 ML SYR SUBCUT SCH ×2 (08:51→21:00)
[2022-04-09] MEDS: Lidocaine PATCH 5% PATCH TRANSDERM SCH (21:00)
[2022-04-09] MEDS: Mupirocin 2% OINT TUBE TOPICAL SCH (21:01)
[2022-04-09] MEDS: Senna TAB 8.6 mg TAB PO SCH (21:03)
[2022-04-10] MEDS: oxyCODONE SR 10 mg TAB PO SCH ×2 (08:13→20:51)
[2022-04-10] MEDS: Enoxaparin 40 MG/0.4 ML SYR SUBCUT SCH ×2 (08:14→20:52)
[2022-04-10] MEDS: Senna TAB 8.6 mg TAB PO SCH (20:51)
[2022-04-10] MEDS: Mupirocin 2% OINT TUBE TOPICAL SCH (20:53)
[2022-04-10] MEDS: Lidocaine PATCH 5% PATCH TRANSDERM SCH (20:54)
[2022-04-11] MEDS: oxyCODONE SR 10 mg TAB PO SCH ×2 (08:20→20:57)
[2022-04-11] MEDS: Enoxaparin 40 MG/0.4 ML SYR SUBCUT SCH (08:22)
[2022-04-11] MEDS: Mupirocin 2% OINT TUBE TOPICAL SCH (20:38)
[2022-04-11] MEDS: Lidocaine PATCH 5% PATCH TRANSDERM SCH (20:49)
[2022-04-11] MEDS: Senna TAB 8.6 mg TAB PO SCH (20:56)
[2022-04-12 06:28] LABS: ABS Eosinophils 0.1 10^3/ul (0-0.6); ABS Lymphocytes 1.2 10^3/ul (1.0-4.8); ABS Monocytes 0.4 10^3/ul (0-0.8); ABS Neutrophils 2.5 10^3/ul (1.5-7.7); Eosinophil % 1.8 %; Hematocrit 33 % (42-52); Lymphocyte % 29.1 %; Mean Corpuscular HGB Conc 33 g/dL (31-36); Mean Corpuscular Hemoglobin 31 pg (27-31); Mean Corpuscular Volume 92 fL (80-94); Mean Platelet Volume 6.6 fL (7.4-10.4); Nucleated Red Blood Cells % 0.1; Platelet Count 362 10^3/uL (150-450); Red Blood Count 3.59 10^6 /uL (4.18-5.48); Red Cell Distribution Width 14 % (10-15); White Blood Count 4.2 10^3/uL (3.5-10.8)
[2022-04-12 06:58] LABS: Albumin 3.5 g/dL (3.2-5.2); Albumin/Globulin Ratio 1.3 (1-3); Calcium 9.1 mg/dL (8.6-10.3); Globulin 2.7 g/dL (2-4); Total Bilirubin 0.7 mg/dL (0.2-1.0); Total Protein 6.2 g/dL (6.4-8.9); eGFR CKD-EPI 96.6 (>60)
[2022-04-12] MEDS: oxyCODONE SR 10 mg TAB PO SCH (09:22)
[2022-04-12] MEDS: Senna TAB 8.6 mg TAB PO SCH (21:02)
[2022-04-12] MEDS: Mupirocin 2% OINT TUBE TOPICAL SCH (21:02)
[2022-04-12] MEDS: Lidocaine PATCH 5% PATCH TRANSDERM SCH (21:03)
[2022-04-13 05:52] VITALS: BP 116/72
== END 2022-04-13 12:54 | disposition home or self-care (01) | DRG 860 ==
LOC: PMRU 11:09
PROVIDERS: ADMIT Physical Medicine & Rehabilitation; ATTEND Physical Medicine & Rehabilitation

== ENCOUNTER 2023-03-21 09:52 | Observation (INO) ==
[~2023-03-21 09:52] MED LIST changes: -Buffered Lidocaine 0.9% SYRIN* 5 ML/SYR SYRINGE INTRADERM ONE; +Buffered Lidocaine 1% SYRIN 1 ml INTRADERM ONE; +HYDROmorphone 1 MG/1 ML SYRINGE IV PRN; +Lactated Ringers 1000 ml BAG 1,000 ML IV SCH; +Naloxone 0.4 mg VIAL 0.4 mg/ml 1 ml VIAL IV PRN
[2023-03-21 10:59] LABS: Rapid COVID-19 Molecular Undetected (Undetected)
[2023-03-21] MEDS ORDERED: Chlorhexidine MOUTHWASH 0.12% 15 ML UDC ONE (11:03)
[2023-03-21] MEDS ORDERED: ceFAZolin 2 GM in NS PREMIX 2 GM/100 ML BAG IVPB ONE (11:06)
[2023-03-21] MEDS ORDERED: Lidocaine 2% PF 5 ML VIAL ONE (11:48)
[2023-03-21] MEDS ORDERED: Dexamethasone IV 4 MG/ML VIAL 1 ml VIAL ONE (11:48)
[2023-03-21] MEDS ORDERED: Ondansetron 4 mg VIAL 2 MG/ML 2 ml VIAL ONE (11:48)
[2023-03-21] MEDS ORDERED: Propofol 10 MG/ML 20 ML BTL ONE (11:49)
[2023-03-21] MEDS ORDERED: chlorproMAZINE 25 MG/ML 2 ML (50 MG) IV ONE (12:00)
[2023-03-21] MEDS ORDERED: Lidocaine 1% w EPI 1:200,000 SDV 30 ML VIAL ONE (12:25)
[2023-03-21] MEDS ORDERED: ceFAZolin VIAL VIAL ONE (12:25)
[2023-03-21] MEDS ORDERED: Gelfoam Sponge SIZE 100 SPONGE ONE (12:25)
[2023-03-21] MEDS ORDERED: Thrombin 5,000 UNITS 1 APPLIC KIT - topical use - TOPICAL ONE (12:25)
[2023-03-21] MEDS ORDERED: Midazolam 2 mg/2 ml VIAL 1 mg/ml 2 ml VIAL (2 mg) ONE (12:36)
[2023-03-21] MEDS ORDERED: fentaNYL 250 mcg/5 ml 50 MCG/ML 5 ml VIAL (250 MCG) ONE (12:36)
[2023-03-21] MEDS ORDERED: Rocuronium 50 mg VIAL 10 mg/ml 5 ml VIAL (50 mg) ONE ×2 (12:39→13:29)
[2023-03-21] MEDS ORDERED: Acetaminophen IV 1 GM/100ML 1,000 MG/100 ML BAG IV ONE (13:30)
[2023-03-21] MEDS ORDERED: Calcium Carb (TUMS) 500 mg CHEW TAB PO PRN (14:47)
[2023-03-21] MEDS ORDERED: HYDROcodone/ACETAMIN 5/325 mg TAB PO PRN ×2 (14:47)
[2023-03-21] MEDS ORDERED: Senna TAB 8.6 mg TAB PO PRN (14:47)
[2023-03-21] MEDS ORDERED: Morphine 2 MG/ML SYRINGE IV PRN (14:47)
[2023-03-21] MEDS ORDERED: Ondansetron 4 mg VIAL 2 MG/ML 2 ml VIAL IV PRN (14:47)
[2023-03-21] MEDS ORDERED: Senna/Docusate 8.6/50 mg (NF) TAB PO PRN (14:51)
[2023-03-21] MEDS ORDERED: Lactated Ringers 1000 ml BAG 1,000 ML IV SCH (15:00)
[2023-03-21] MEDS ORDERED: fentaNYL 100 mcg/2 ml 50 MCG/ML VIAL ONE (15:03)
[2023-03-21] MEDS: fentaNYL 100 mcg/2 ml 50 MCG/ML VIAL IV PRN ×4 (15:05→15:27)
[2023-03-21] MEDS ORDERED: HYDROmorphone 1 MG/1 ML SYRINGE ONE ×2 (15:40→15:50)
[2023-03-21] MEDS: oxyCODONE SR 10 mg TAB PO SCH (21:58)
[2023-03-22 09:46] VITALS: BP 151/81
[2023-03-22] MEDS: oxyCODONE SR 10 mg TAB PO SCH (11:51)
== END 2023-03-22 14:05 | disposition home or self-care (01) ==
LOC: OR 09:52 → SSU 09:52
PROVIDERS: ADMIT Physician Assistant; ATTEND Neurological Surgery